=== PATIENT | female | born 1955 | race Hispanic/Latino ===

== ENCOUNTER 2018-07-20 07:28 | Day surgery (SDC) | payer OTHER ==
[2018-07-20] MEDS ORDERED: ECOTRIN PO NR (08:01)
[2018-07-20 08:49] LABS: Basophils % (Auto) 0.3 % (0.0-1.8); Hematocrit 28.9 % (30.3-42.9); Hemoglobin 9.4 gm/dl (10.1-14.3); Lymphocytes # (Auto) 1.1 K/mm3 (1.2-5.4); Lymphocytes % (Auto) 15.7 % (13.4-35.0); Mean Corpuscular HGB Conc 32 % (30-34); Mean Corpuscular Volume 83 fl (79-97); Monocytes # (Auto) 0.4 K/mm3 (0.0-0.8); Monocytes % (Auto) 5.7 % (0.0-7.3); Platelet Count 362 K/mm3 (140-440); Red Blood Count 3.49 M/mm3 (3.65-5.03); Red Cell Distribution Width 16.9 % (13.2-15.2)
[2018-07-20] MEDS ORDERED: HEPARIN 10,000 UNITS/10 ML ONE (08:58)
[2018-07-20] MEDS ORDERED: HEPARIN/NS 5000 UNIT/500ML(CATH LAB) 1,000 ML IR ONE (08:58)
[2018-07-20] MEDS ORDERED: NITROGLYCERIN SYRINGE 0 ML ONE (08:58)
[2018-07-20 08:59] LABS: INR 0.99 (0.87-1.13); Partial Thromboplastin Time 27.4 Sec. (24.2-36.6)
[2018-07-20] MEDS ORDERED: NACL 0.9% 500 ML 500 ML IV SCH (09:00)
[2018-07-20 09:18] LABS: BUN/Creatinine Ratio 28; Blood Urea Nitrogen 14 mg/dL (7-17); Hemolysis Index 2
[2018-07-20] MEDS: VERSED ONE ×3 (09:54→10:29)
[2018-07-20] MEDS: XYLOCAINE 2% INFILTRATI ONE ×2 (09:54→10:04)
[2018-07-20] MEDS: SUBLIMAZE ONE ×3 (09:54→10:29)
--- NOTE | 2018-07-20 11:48 | Cardiac Catherization Report ---
LEFT HEART AND RIGHT HEART CATHETERIZATION INDICATION FOR PROCEDURE: A 63-year-old female being followed by Dr. Rose in the office, was evaluated for recurrent precordial chest pain and has stress myocardial perfusion imaging, which is of poor quality showed medium sized predominantly fixed and mildly reversible apical defect. Also, there is a small reversible septal defect as well as large partially reversible inferior defect. Overall, findings suggest mild to moderate ischemia. Echocardiogram showed normal global left ventricular systolic function with no significant valvular abnormalities. There was severe pulmonary hypertension of uncertain etiology. Echocardiogram done on 07/13/2018 showed ejection fraction 65-70%. Left ventricular chamber size is normal. RV size is normal. Right ventricular systolic function normal. There is trace tricuspid regurgitation with severe pulmonary hypertension noted. Because of the above findings, the patient is scheduled for ventilation perfusion scan along with left heart and right heart catheterization. The patient was explained of the procedure, potential complications and alternatives of therapy available. The patient was brought to the catheterization laboratory in a fasting condition. The patient was prepared in standard fashion. Right groin area was thoroughly cleansed with chlorhexidine solution. The patient was evaluated for moderate sedation and when it was felt she is an appropriate candidate for sedation. She received IV Versed and fentanyl for sedation and continuously monitored with pulse oximetry, EKG monitoring and hemodynamic monitoring. Subsequently, local anesthesia was given in the right femoral area. Initially, right femoral artery puncture was made using 5-Kazakh micropuncture needle and 5-Kazakh sheath was introduced. Subsequently, using micropuncture needle, right femoral vein puncture was made without difficulty. An 8-Kazakh sheath was introduced. Using the right femoral artery sheath 5-Kazakh multipurpose catheter was used to obtain the angiograms of the left ventricle done in HOWARD projection using hand injection with multipurpose catheter and angiograms of the right coronary artery were obtained with the same catheter in multiple views. Subsequently, JL3.5 catheter was used to obtain the angiograms of the left coronary artery in multiple views. After obtaining the coronary angiography5-Kazakh diagnostic catheter was removed. Subsequently, a 7-Kazakh flotation [place]esha catheter was advanced under fluoroscopy into the right atrium, right ventricle and pulmonary artery and its position. Pressures were obtained in all the positions. Subsequently, O2 saturations were obtained from pulmonary capillary wedge position, pulmonary artery, and right ventricle and right femoral artery. At the end of the procedure [place]esha catheter was removed without any difficulty. The patient was monitored for sedation starting at 10:01 a.m. and ended at 10:28 a.m. At the end of the procedure the patient is talking normally, able to breathe well, moving all the extremities. No untoward side effects were noted for moderate sedation. The patient was transferred to the room in stable condition. Following findings were noted. Aortic pressure is 122/66, left ventricular pressure of 134, end diastolic pressure of 16. No gradient across the aortic valve. Estimated ejection fraction 55% noted. Next is right coronary artery dominant vessel arises normally from right coronary cusp. This is dominant vessel, angiographically smooth and normal. Next is left coronary artery arises normally from left coronary cusp. Left main without significant disease. There is a calcification on the inferior aspect of the proximal LAD, which is mild to moderate, but is localized except for calcification in the proximal LAD. Angiographically LAD, which curves around the apex and its branches and circumflex artery and branch are angiographically smooth and normal. Next, Collaterals none. Left ventriculogram done in HOWARD projection using hand injection showed normal sized left ventricle with normal contractility. FINAL IMPRESSION: 1. Essentially normal coronary anatomy angiographically with mild calcification in the proximal LAD area. 2. Normal left ventricular systolic function. 3. End diastolic pressure upper limits of normal. 4. Right-sided pressures are as follows: Right atrial mean pressure is 8 mmHg. Right ventricular pressure 33/10 mmHg. Pulmonary artery pressure is 33/20 mmHg. Pulmonary wedge pressure mean is 15 mmHg. Cardiac output is 6.87 liters with index of 3.71 liters per minute. FINAL IMPRESSION: 1. Essentially normal coronary anatomy with mild calcification of proximal LAD and normal left ventricular systolic function. 2. No significant pulmonary hypertension noted with normal cardiac output. Pulmonary artery pressures are almost within normal limits. Manual pressure was applied to achieve good hemostasis both of the artery and the vein in the right femoral artery. Procedure was uncomplicated. Findings were explained to the patient. JOB# [id number] TANIKA/TIO EATON
[2018-07-20] MEDS ORDERED: NORCO 5/325 PO ONE (12:44)
--- NOTE | 2018-07-20 13:50 | Nuclear Medicine Report ---
LUNG SCAN, VENTILATION AND PERFUSION: History: Shortness of breath. Technique: 5mci of Tc99m MAA was infused for the perfusion images. 15mci XE 133 gas was inhaled for the ventilatory images. Findings: Inhalation of Xenon gas demonstrates a normal distribution of the activity throughout both lungs. The wash out phases show no focal retention of activity. After injection of Technetium 99m macroaggregated albumin gamma camera imaging of the lungs in multiple projections demonstrates normal pulmonary contours with a homogeneous distribution of activity. No focal areas of perfusion deficiency are identified. IMPRESSION: Low probability for pulmonary embolus.
[2018-07-20 14:39] VITALS: BP 137/79
--- NOTE | 2018-07-20 14:52 | XRay Report ---
AP CHEST: HISTORY: Shortness of breath AP view of the chest demonstrates a normal mediastinal and cardiac contour with clear lungs and normal bony and soft tissue structures. IMPRESSION: Unremarkable AP chest.
--- NOTE | 2018-07-20 15:13 | Short Stay Summary ---
Short Stay Documentation Date of service: 07/20/18 - History H&P: obtained from office - Allergies and Medications Current Medications: Allergies morphine Allergy (Severe, Verified 07/20/18 08:31) STOP BREATHING IV DYE Allergy (Intermediate, Uncoded 07/20/18 08:31) Nausea Home Medications Medication Instructions Recorded Confirmed Last Taken Type Atorvastatin Calcium 40 mg PO QHS 07/20/18 07/20/18 07/19/18 History 40mg Famotidine [Acid Controller] 20 mg PO Q12HR 07/20/18 07/20/18 07/20/18 History 20mg ISOSORBIDE MONOnitrate [Imdur ER] 30 mg PO DAILY 07/20/18 07/20/18 07/19/18 History 30mg Metoprolol Succinate [Toprol Xl] 50 mg PO DAILY 07/20/18 07/20/18 07/19/18 History 50mg diphenhydrAMINE [Benadryl CAP] 25 mg PO Q8HR 07/20/18 07/20/18 07/20/18 History 25mg predniSONE [Deltasone] 60 mg PO PREOP 07/20/18 07/20/18 07/20/18 History 60mg Active Medications Sodium Chloride (Nacl 0.9% 500 Ml) 500 mls @ 50 mls/hr IV DIRECT JANA Stop: 07/20/18 18:59 Last Admin: 07/20/18 08:29 Dose: 50 mls/hr Documented by: - Brief post op/procedure progress note Date of procedure: 07/20/18 Pre-op diagnosis: chest pain, abnormal stress test, pulm HTN Post-op diagnosis: other (normal coronaries) Procedure: LHC and RHC - see dictated cath report Anesthesia: local Estimated blood loss: none Condition: stable - Disposition Condition at discharge: Good Disposition: [id number] TO HOME OR SELFCARE - Discharge Diagnoses (1) Normal coronary arteries Status: Chronic Short Stay Discharge Plan Activity: advance as tolerated Wound: open to air, keep clean and dry, per your surgeon's advice Follow up with: ELA TURCIOS MD [Primary Care Provider] - 7 Days Forms: CardCath PCI D/C Instructions
== END 2018-07-20 15:10 | disposition home or self-care (01) ==
LOC: CATHLABREC 07:28
PROVIDERS: ATTEND Internal Medicine
DX: I25.10 Atherosclerotic heart disease of native coronary artery without angina pectoris (principal); E78.00 Pure hypercholesterolemia, unspecified; M19.90 Unspecified osteoarthritis, unspecified site; F17.200 Nicotine dependence, unspecified, uncomplicated; Z79.899 Other long term (current) drug therapy; Z79.01 Long term (current) use of anticoagulants; Z91.041 Radiographic dye allergy status; Z88.5 Allergy status to narcotic agent; Z98.890 Other specified postprocedural states; Z80.9 Family history of malignant neoplasm, unspecified; Z82.49 Family history of ischemic heart disease and other diseases of the circulatory system
CPT/HCPCS: 36415; 71045; 78582; 80048; 85025; 85610; 85730; 93005; 93010; 93460; A9540; A9558; J1644; J2250; J3010; J7040; Q9967